=== PATIENT | male | born 1945 | race African-American/Black ===

== ENCOUNTER 2017-02-22 19:22 | Emergency (ER) | payer MEDICARE ==
[2017-02-22 20:28] LABS: ADD MAN DIFF? NO
[2017-02-22 20:30] LABS: BASO % 1 % (0-3); EOS % 1 % (0-3); HEMATOCRIT 42.2 % (39.0-53.0); LYMPH # 1.9 x10^3/uL (1.0-4.8); LYMPH % 37 % (24-48); MEAN CORPUSCULAR HEMOGLOBIN 28 pg (25-35); MEAN CORPUSCULAR HGB CONC 33 g/dL (31-37); MEAN CORPUSCULAR VOLUME 83 fL (79-100); MONO # 0.5 x10^3/uL (0.0-1.1); MONO % 10 % (0-9); NEUT # 2.5 x10^3uL (1.8-7.7); NEUT % 51 % (31-73); PLATELET COUNT 200 x10^3/uL (140-400); RED BLOOD COUNT 5.06 x10^6/uL (4.30-5.70); RED CELL DISTRIBUTION WIDTH 13.4 % (11.5-14.5)
[2017-02-22] MEDS: cloNIDine HCL 0.1 MG TABLET PO (20:37)
[2017-02-22 20:43] LABS: ANION GAP 9 (6-14); BLOOD UREA NITROGEN 12 mg/dL (8-26); BUN/CREATININE RATIO 15 (6-20); CALCIUM 8.8 mg/dL (8.5-10.1); CARBON DIOXIDE 30 mmol/L (21-32); CHLORIDE 98 mmol/L (98-107); CREATININE 0.8 mg/dL (0.7-1.3); GFR 115.6; GLUCOSE 396 mg/dL (70-99); POTASSIUM 4.2 mmol/L (3.5-5.1); SODIUM 137 mmol/L (136-145)
[2017-02-22 20:49] LABS: ALBUMIN 3.4 g/dL (3.4-5.0); ALBUMIN/GLOBULIN RATIO 0.9 (1.0-1.7); ALK PHOS 92 U/L (46-116); ALT (SGPT) 32 U/L (16-63); AST (SGOT) 20 U/L (15-37); TOTAL BILIRUBIN 1.2 mg/dL (0.2-1.0); TOTAL PROTEIN 7.4 g/dL (6.4-8.2)
[2017-02-22 20:55] LABS: NT-PRO BNP 184 pg/mL (0-124)
[2017-02-22] MEDS: ONDANSETRON PF 4 MG/2 ML VIAL. IV (22:19)
[2017-02-22] MEDS: MORPHINE SULFATE 4 MG/ML DISP.SYRIN. IV (22:19)
[2017-02-22] MEDS: CEPHALEXIN 250 MG CAPSULE. PO (22:20)
[2017-02-22] MEDS: LABETALOL 20 MG/4 ML DISP.SYRIN. IVP (22:20)
[2017-02-22] MEDS: TETANUS AND DIPHTHERIA TOX/PF 0.5 ML DISP.SYRIN. VAX IM (22:22)
== END 2017-02-22 22:45 | disposition home or self-care (01) ==
LOC: ER 19:22
DX: S06.0X0A Concussion without loss of consciousness, initial encounter (principal); S02.2XXA Fracture of nasal bones, initial encounter for closed fracture; E78.00 Pure hypercholesterolemia, unspecified; I10 Essential (primary) hypertension; E11.65 Type 2 diabetes mellitus with hyperglycemia; Z91.14 Patient's other noncompliance with medication regimen; E78.5 Hyperlipidemia, unspecified; Z88.7 Allergy status to serum and vaccine; W18.39XA Other fall on same level, initial encounter; Y93.89 Activity, other specified; Y99.8 Other external cause status; Y92.89 Other specified places as the place of occurrence of the external cause
CPT/HCPCS: 12011; 36415; 70450; 70486; 80053; 83880; 85025; 90471; 90714; 93005; 96374; 96375; 99285-25; J2270; J2405; J3490